=== PATIENT | female | born 1960 | race Caucasian/White ===

== ENCOUNTER 2022-07-12 12:15 | Outpatient (CLI) | payer BC, OTHER ==
--- NOTE | 2022-07-12 14:51 | XRAY Report ---
PROCEDURE: Chest 2 View X-Ray INDICATIONS: COUGH TECHNIQUE: 2 views of the chest were acquired. COMPARISON: None. FINDINGS: Surgical changes and devices: None. Lungs and pleura: No pleural effusions or pneumothorax. Lungs are clear. Mediastinum: Mediastinal contours are normal. Heart size is normal. Bones and chest wall: No suspicious bony abnormalities. Soft tissues appear unremarkable. IMPRESSION: No acute cardiopulmonary pathology. Reviewed by: Dawood Casanova MD on 07/12/2022 2:50 PM PST Approved by: Dawood Casanova MD on 07/12/2022 2:50 PM PST Station ID: [id number]
== END 2022-07-12 12:16 | disposition home or self-care (01) ==
LOC: DI 12:15
PROVIDERS: ATTEND Physician Assistant
DX: R06.02 Shortness of breath (principal); R05.9 Cough, unspecified

== ENCOUNTER 2023-12-14 18:39 | Emergency (ER) | payer BC ==
--- NOTE | 2023-12-14 18:59 | ED Physician Documentation ---
PD HPI DYSPNEA - Stated complaint Stated Complaint: SOA - Chief complaint Chief Complaint: Resp - History obtained from History obtained from: Patient - Additional information Additional information: 63-year-old woman with asthma, otherwise fairly healthy. She developed a sore throat yesterday without fevers and today she has had progressive shortness of breath and wheezing. There is no associated chest pain. She used her Breo as usual and her rescue inhaler multiple times without relief. She is never been hospitalized for her asthma. Denies chest pain, pedal edema or calf pain. PD PAST MEDICAL HISTORY - Past Medical History Past Medical History: Yes Respiratory: Asthma - Past Surgical History Past Surgical History: Yes HEENT: Other - Present Medications Home Medications: Ambulatory Orders Medication Instructions Recorded Confirmed predniSONE [Deltasone] 20 mg PO [id number] #21 tab 12/14/23 - Allergies Allergies/Adverse Reactions: Allergies Allergy/AdvReac Type Severity Reaction Status Date / Time No Known Drug Allergies Allergy Verified 12/14/23 18:50 - Social History Does the pt smoke?: No Smoking Status: Never smoker Does the pt drink ETOH?: Yes Does the pt have substance abuse?: No PD ED PE NORMAL - Vitals Vital signs reviewed: Yes - General General: Alert and oriented X 3, No acute distress - HEENT HEENT: PERRL, EOMI - Neck Neck: Supple, no meningeal sign, No bony TTP - Cardiac Cardiac: RRR, No murmur - Respiratory Respiratory: Other (Speaking in full sentences albeit mild respiratory distress and not speaking in paragraphs before she has to pause with audible wheezing both inspiratory and expiratory.) - Abdomen Abdomen: Non tender - Extremities Extremities: No edema, No calf tenderness / cord - Neuro Neuro: Alert and oriented X 3, Normal speech Results - Vitals Vitals: Vital Signs - 24 hr 12/14/23 12/14/23 12/14/23 18:46 19:00 19:34 Temperature 36.2 C L Heart Rate 99 100 120 H Respiratory 16 95 H 14 Rate Blood Pressure 182/86 H 148/91 H O2 Saturation 96 100 Oxygen O2 Source Room air PD Medical Decision Making - ED course ED course: 63-year-old woman with exacerbation of asthma likely due to viral syndrome. No focal findings in the lungs but she is wheezy with mild labored breathing. She is administered a triple neb and prednisone to start. After the administration of above she feels much better. She still has slight wheezes but is no longer tachypneic and she requested discharge. Departure - Departure Disposition: 01 Home, Self Care Clinical Impression: Asthma Qualifiers: Asthma severity: moderate Asthma persistence: persistent Asthma complication type: with acute exacerbation Qualified Code(s): J45.41 - Moderate persistent asthma with (acute) exacerbation Condition: Good Record reviewed to determine appropriate education?: Yes Instructions: Asthma Dc Prescriptions: predniSONE [Deltasone] 20 mg PO [id number] #21 tab Comments: Call your doctor to arrange a follow-up appointment, make the next available appointment. In the interim, return anytime if worse or if new symptoms develop. Forms: PCP List
[2023-12-14] MEDS: predniSONE 20 MG TABLET PO STA (19:08)
[2023-12-14] MEDS: ALBUTEROL NEB 2.5 MG/3 ML INH STA (19:18)
[2023-12-14] MEDS: IPRATROPIUM/ALBUTEROL 3 ML NEB INH STA (19:19)
[2023-12-14 20:42] VITALS: BP 137/74; O2SAT 93
== END 2023-12-14 20:34 | disposition home or self-care (01) ==
LOC: ED 18:39
DX: J45.41 Moderate persistent asthma with (acute) exacerbation (principal)
CPT/HCPCS: 94640; 94664; 99283; 99284; J7512

== ENCOUNTER 2023-12-27 09:45 | Outpatient (CLI) | payer BC ==
[2023-12-27 10:13] LABS: BASOPHILS # (AUTO) 0.1 10^3/uL (0.0-0.1); BASOPHILS % (AUTO) 1.3 %; EOSINOPHILS # (AUTO) 0.7 10^3/uL (0.0-0.7); EOSINOPHILS % (AUTO) 10.6 %; HCT - HEMATOCRIT 42.1 % (37.0-47.0); HGB - HEMOGLOBIN 13.9 g/dL (12.0-16.0); LYMPHOCYTES % (AUTO) 32.5 %; MEAN CORPUSCULAR HEMOGLOBIN 31.6 pg (27.0-31.0); MEAN CORPUSCULAR VOLUME 95.7 fL (81.0-99.0); MEAN PLATELET VOLUME 9.6 fL (7.9-10.8); MONOCYTES # (AUTO) 0.4 10^3/uL (0.0-1.0); MONOCYTES % (AUTO) 5.8 %; NEUTROPHILS # (AUTO) 3.1 10^3/uL (1.5-6.6); NEUTROPHILS % (AUTO) 49.6 %; PLT - PLATELET COUNT 338 10^3/uL (130-450); WHITE BLOOD COUNT 6.2 x10^3/uL (4.8-10.8)
[2023-12-27 10:25] LABS: ALBUMIN/GLOBULIN RATIO 1.2 (1.0-2.2); ALKALINE PHOSPHATASE 58 IU/L (42-121); ALT ALANINE AMINOTRANSFERASE 14 IU/L (10-60); AST ASPARTATE AMINOTRANSFERASE 14 IU/L (10-42); BILIRUBIN,TOTAL 0.4 mg/dL (0.2-1.0); BUN - BLOOD UREA NITROGEN 13 mg/dL (6-20); CALCIUM 9.9 mg/dL (8.5-10.3); CARBON DIOXIDE - CO2 29 mmol/L (21-32); CHLORIDE 107 mmol/L (101-111); CHOL/HDL RATIO 3.9 (<4.4); CHOLESTEROL 221 mg/dL; CREATININE 0.9 mg/dL (0.6-1.3); GFR - MDRD 63 (>89); GLUCOSE 109 mg/dL (74-104); HDL CHOLESTEROL 56 mg/dL; LDL CHOLESTEROL,CALCULATED 142 mg/dL; LDL/HDL RATIO 2.5 (<4.4); POTASSIUM 4.2 mmol/L (3.5-4.5); SODIUM 140 mmol/L (135-145); TOTAL PROTEIN 7.3 g/dL (6.4-8.9); TRIGLYCERIDES 114 mg/dL; VLDL CHOLESTEROL 23 mg/dL
[2023-12-27 10:37] LABS: THYROID STIMULATING HORMONE 2.79 uIU/mL (0.34-5.60)
[2023-12-27 12:14] LABS: ESTIMATED AVERAGE GLUCOSE 103 mg/dL (70-100); HEMOGLOBIN A1c% 5.2 % (4.27-6.07)
== END 2023-12-27 09:46 | disposition home or self-care (01) ==
LOC: LAB 09:45
PROVIDERS: ATTEND Nurse Practitioner Family
DX: I10 Essential (primary) hypertension (principal); R73.03 Prediabetes
CPT/HCPCS: 36415; 80053; 80061; 83036; 83721; 84443; 85025